=== PATIENT | female | born 1985 | race Two or more races ===

== ENCOUNTER 2024-10-16 17:58 | Emergency (ER) | payer OTHER ==
[~2024-10-16] VITALS: Ht 149.9 cm; Wt 65.0 kg
[2024-10-16 18:01] VITALS: TEMP 97.9
--- NOTE | 2024-10-16 18:29 | ED.PDOC ---
SOB-HPI HPI Comments 39-year-old female who came to ER via EMS for shortness of breath. Patient does have history of asthma, states for the past 2-3 days, she has been experiencing shortness of breath and wheezing, temporary relieved with inhalers and nebulizers. About an hour ago, she was at the grocery when she developed sudden onset shortness of breath and wheezing, prompting paramedics to come. She was saturating 80% on room air on scene. Chief Complaint: Shortness of Breath Time Seen by MD: 18:28 Primary Care Provider: ALIN Jimenez notes: Adaptive Physical Education Specialist Notes Information Source: Emergency Med Personnel Mode of Arrival: EMS Severity: Moderate Timing: Days Duration: Intermittent Context: With Light Exertion History of: Asthma Prehospital treatment: Breathing Tx Associated Signs and Symptoms: Wheeze, Cough Quality: Tightness Radiation: No Radiation If cough with SOB: Non-Productive Past Medical History PAST MEDICAL HISTORY: Asthma Surgical History: Denies all surgeries FLOOD CONTROL ENGINEER History: Denies all FLOOD CONTROL ENGINEER Hx Family History Family History: Reviewed,noncontributory to illness Social History Smoker: Non-Smoker Alcohol: Denies ETOH Use Drugs: Denies Drug Use Lives In: Home Constitutional: denies: chills, diaphoresis, fatigue, fever, malaise, sweats, weakness, others EENTM: denies: blurred vision, double vision, ear bleeding, ear discharge, ear drainage, ear pain, ear ringing, eye pain, eye redness, hearing loss, mouth pain, mouth swelling, nasal discharge, nose bleeding, nose congestion, nose pain, photophobia, tearing, throat pain, throat swelling, voice changes, others Respiratory: reports: SOB at rest, shortness of breath, wheezing; denies: cough, hemoptysis, orthopnea, SOB with excertion, stridor, others Cardiovascular: denies: chest pain, dizzy spells, diaphoresis, Dyspnea on exertion, edema, irregular heart beat, left arm pain, lightheadedness, palpitations, PND, syncope, others Gastrointestinal: denies: abdomen distended, abdominal pain, blood streaked bowels, constipated, diarrhea, dysphagia, difficulty swallowing, hematemesis, melena, nausea, poor appetite, poor fluid intake, rectal bleeding, rectal pain, vomiting, others Genitourinary: denies: abnormal vagina bleeding, burning, dyspareunia, dysuria, flank pain, frequency, hematuria, incontinence, pain, , vagina discharge, urgency, others Neurological: denies: dizziness, fainting, headache, left sided numbness, left sided weakness, numbness, paresthesia, pre-existing deficit, right sided numbness, right sided weakness, seizure, speech problems, tingling, tremors, weakness, others Musculoskeletal: denies: back pain, gout, joint pain, joint swelling, muscle pain, muscle stiffness, neck pain, others Integumetry: denies: bruises, change in color, change in hair/nails, dryness, laceration, lesions, lumps, rash, wounds, others Allergic/Immunocompromised: denies: Difficulty Healing, Frequent Infections, Hives, Itching, others Hematologic/Lymphatic: denies: anemia, blood clots, easy bleeding, easy bruising, swollen glands, others Endocrine: denies: excessive hunger, excessive sweating, excessive thirst, excessive urination, flushing, intolerance to cold, intolerance to heat, unexplained weight gain, unexplained weight loss, others Psychiatric: denies: anxiety, bipolar disorder, depression, hopeless, panic disorder, schizophrenia, sleepless, suicidal, others Physical Exam General Appearance: Mild Distress, Normal HEENT: Normal ENT Inspection, Pharynx Normal, TMs Normal Neck: Full Range of Motion, Non-Tender, Normal, Normal Inspection Respiratory: Chest Non-Tender, No Accessory Muscle Use, Respiratory Distress, Wheezing Cardiovascular: No Edema, No JVD, No Murmur, No Gallop, Normal Peripheral Pulses, Regular Rate/Rhythm Breast Exam: Deferred Gastrointestinal: No Organomegaly, Non Tender, No Pulsatile Mass, Normal Bowel Sounds, Soft Genitalia: Deferred Pelvic: Deferred Rectal: Deferred Extremities: No calf tenderness, Normal capillary refill, Normal inspection, Normal range of motion, Non-tender, No pedal edema Musculoskeletal : Apperance: Normal Neurologic: Alert, personnel coordinator II-XII nml as Tested, No Motor Deficits, Normal Affect, Normal Mood, No Sensory Deficits Cerebellar Function: Normal Reflexes: Normal Skin: Dry, Normal Color, Warm Lymphatic: No Adenopathy Was a procedure done? Was a procedure done?: No Differential Dx Differential Diagnosis: Asthma, Bronchitis, Pneumonia, Respiratory Distress, URI X-Ray, Labs, Meds, VS Vital Signs Date Time Temp Pulse Resp B/P (MAP) Pulse Ox O2 Delivery O2 Flow Rate FiO2 10/16/24 20:20 89 10 97 Room Air* 0 21 10/16/24 20:20 89 10 105/55 (72) 10/16/24 18:42 93 18 99 Room Air* 0 21 10/16/24 18:39 90 17 115/51 (72) 100 10/16/24 18:37 20 99 Room Air* 0 21 10/16/24 18:01 97.9 88 30 120/78 (92) 100 97.9 Current Medications Medications (Trade) Dose Ordered Sig/Donna Route Start Time Stop Time Status Last Admin Albuterol (Ventolin Medneb) 5 mg ONCE ONCE NEB 10/16/24 18:30 10/16/24 18:31 DC 10/16/24 18:36 Ipratropium [place] (Atrovent Medneb) 0.5 mg ONCE ONCE NEB 10/16/24 18:30 10/16/24 18:31 DC 10/16/24 18:36 Prednisone 40 mg ONCE ONCE PO 10/16/24 18:30 10/16/24 18:31 DC 10/16/24 18:37 Time of 1ST Reevaluation: 18:26 Reevaluation 1ST: Unchanged Patient Education/Counseling: Diagnosis, Treatment Family Education/Counseling: No Family Present Departure 1 Departure Time of Disposition: 20:00 Impression: Primary Impression: Asthma exacerbation Disposition: 01 HOME / SELF CARE / HOMELESS Condition: Stable e-Prescriptions Prednisone (Prednisone) 20 Mg Tab 20 MG PO BID for 5 Days, #10 TAB Prov: ZAC REYES MD 10/16/24 Albuterol Sulfate (Albuterol Sulfate Hfa) 108 Mcg/Act Aer 108 MCG IN Q6HP PRN, #1 AER 5 Refills Prov: ZAC REYES MD 10/16/24 Albuterol Sulfate (Albuterol Sulfate) 0.083 % Neb 1 VIAL NEB Q4HPRN PRN, #50 VIAL 5 Refills Prov: ZAC REYES MD 10/16/24 Discharged With: Self Critical Care Note Critical Care Time?: No Stability Stability form required: No Heart Score Heart Score: Heart Score Response (Comments) Value History N/A 0 EKG N/A 0 Age N/A 0 Risk Factors N/A 0 Troponin N/A 0 Total 0 I personally scribed for ZAC REYES MD ([email or web address]) on 10/16/24 at 18:29. Electronically submitted by Ryne Bolanos ([facility]). ZAC REYES MD October 16, 2024 18:29
[2024-10-16] MEDS: ALBUTEROL SULF 2.5 MG/0.5ML(0.5%) NEB SOLN NEB ONE (18:36)
[2024-10-16] MEDS: IPRATROPIUM BROM 0.5 MG/2.5ML INH SOL NEB ONE (18:36)
[2024-10-16] MEDS: predniSONE 20 MG TAB PO ONE (18:37)
[2024-10-16 18:42] VITALS: PULSE 93; RESP 18; O2SAT 99
--- NOTE | 2024-10-16 18:54 | DVH ---
CHEST RADIOGRAPH Indication: SOB Technique: Single frontal view of the chest was obtained Comparison: None FINDINGS: Lines and Tubes: None Lungs: No focal consolidation. Pleura: No effusion. No pneumothorax. Cardiomediastinal contours: Unremarkable Bones: No acute osseous abnormality. IMPRESSION: 1. No acute cardiopulmonary disease.
[2024-10-16] MEDS ORDERED: ALBU108A5 IN (19:51)
[2024-10-16] MEDS ORDERED: PRED20TA2 PO (19:51)
[2024-10-16] MEDS ORDERED: ALBU0.084 NEB (19:51)
[2024-10-16 20:20] VITALS: BP 105/55; PULSE 89; RESP 10; O2SAT 97
== END 2024-10-16 20:44 | disposition home or self-care (01) ==
LOC: EDBD 17:58 → ER 18:07
DX: J45.901 Unspecified asthma with (acute) exacerbation (principal)
CPT/HCPCS: 71045; 94640; 99283; J7512

== ENCOUNTER 2024-11-26 17:19 | Inpatient (IN) | payer OTHER ==
[~2024-11-26] VITALS: Ht 149.9 cm; Wt 70.1 kg
[~2024-11-26 17:19] MED LIST: ALBU0.084 NEB; ALBU108A5 IN; PRED20TA2 PO
--- NOTE | 2024-11-26 17:34 | ED.PDOC ---
SOB-HPI HPI Comments This is a 39 year old female presenting to the ED with chief complaint of SOB. Patient reports that she started to experiencing difficulty breathing with SOB about 20 minutes ago. Patient relays that she has history of asthma and had used her inhaler and nebulizer with no relief noted. Patient states she feels like she is having an allergic reaction, but is not sure from what. Patient denies any N/V, chest pain, fever, chills, dizziness, cough, itchiness, or rash. Chief Complaint: Asthma Time Seen by MD: 17:32 Primary Care Provider: ALIN Reviewed notes: Nurses Notes, Medications, Allergies Information Source: Patient Mode of Arrival: Ambulatory Severity: Moderate Timing: Minutes Duration: Since onset Context: At Rest PE Risk Factors: None History of: Asthma Prehospital treatment: Breathing Tx Modifying Factors: Nothing Associated Signs and Symptoms: None Past Medical History PAST MEDICAL HISTORY: Asthma Surgical History: Denies all surgeries PMO ANALYST History: Denies all PMO ANALYST Hx Family History Family History: Reviewed,noncontributory to illness, Family hx of DM Social History Smoker: Non-Smoker Alcohol: Denies ETOH Use Drugs: Denies Drug Use Lives In: Home Constitutional: denies: chills, diaphoresis, fatigue, fever, malaise, sweats, weakness, others EENTM: denies: blurred vision, double vision, ear bleeding, ear discharge, ear drainage, ear pain, ear ringing, eye pain, eye redness, hearing loss, mouth pain, mouth swelling, nasal discharge, nose bleeding, nose congestion, nose pain, photophobia, tearing, throat pain, throat swelling, voice changes, others Respiratory: reports: shortness of breath; denies: cough, hemoptysis, orthopnea, SOB at rest, SOB with excertion, stridor, wheezing, others Cardiovascular: denies: chest pain, dizzy spells, diaphoresis, Dyspnea on exertion, edema, irregular heart beat, left arm pain, lightheadedness, palpitations, PND, syncope, others Gastrointestinal: denies: abdomen distended, abdominal pain, blood streaked bowels, constipated, diarrhea, dysphagia, difficulty swallowing, hematemesis, melena, nausea, poor appetite, poor fluid intake, rectal bleeding, rectal pain, vomiting, others Genitourinary: denies: abnormal vagina bleeding, burning, dyspareunia, dysuria, flank pain, frequency, hematuria, incontinence, pain, , vagina discharge, urgency, others Neurological: denies: dizziness, fainting, headache, left sided numbness, left sided weakness, numbness, paresthesia, pre-existing deficit, right sided numbness, right sided weakness, seizure, speech problems, tingling, tremors, weakness, others Musculoskeletal: denies: back pain, gout, joint pain, joint swelling, muscle pain, muscle stiffness, neck pain, others Integumetry: denies: bruises, change in color, change in hair/nails, dryness, laceration, lesions, lumps, rash, wounds, others Allergic/Immunocompromised: denies: Difficulty Healing, Frequent Infections, Hives, Itching, others Hematologic/Lymphatic: denies: anemia, blood clots, easy bleeding, easy bruising, swollen glands, others Endocrine: denies: excessive hunger, excessive sweating, excessive thirst, excessive urination, flushing, intolerance to cold, intolerance to heat, unexplained weight gain, unexplained weight loss, others Psychiatric: denies: anxiety, bipolar disorder, depression, hopeless, panic disorder, schizophrenia, sleepless, suicidal, others All Other Systems: Reviewed and Negative Physical Exam General Appearance: Moderate Distress HEENT: Normal ENT Inspection, Pharynx Normal, TMs Normal Neck: Full Range of Motion, Non-Tender, Normal, Normal Inspection Respiratory: Chest Non-Tender, Decreased Breath Sounds, No Accessory Muscle Use, Respiratory Distress, Wheezing Cardiovascular: No Edema, No JVD, No Murmur, No Gallop, Normal Peripheral Pulses, Regular Rate/Rhythm Breast Exam: Deferred Gastrointestinal: No Organomegaly, Non Tender, No Pulsatile Mass, Normal Bowel Sounds, Soft Genitalia: Deferred Pelvic: Deferred Rectal: Deferred Extremities: No calf tenderness, Normal capillary refill, Normal inspection, Normal range of motion, Non-tender, No pedal edema Musculoskeletal : Apperance: Normal Neurologic: Alert, agency director II-XII nml as Tested, No Motor Deficits, Normal Affect, Normal Mood, No Sensory Deficits Cerebellar Function: Normal Reflexes: Normal Skin: Dry, Normal Color, Warm Lymphatic: No Adenopathy Was a procedure done? Was a procedure done?: No Differential Dx Differential Diagnosis: Asthma, Bronchitis, CHF, COPD, Pneumonia X-Ray, Labs, Meds, VS Vital Signs Date Time Temp Pulse Resp B/P (MAP) Pulse Ox O2 Delivery O2 Flow Rate FiO2 11/26/24 17:46 100 Room Air* 0 21 11/26/24 17:45 98.4 94 17 131/70 (90) 100 98.4 11/26/24 17:38 26 100 Room Air* 0 21 21 11/26/24 17:20 97.2 98 22 121/74 (90) 100 97.2 11/26/24 17:20 22 100 Room Air* 0 21 Lab Test 11/26/24 17:44 Range/Units White Blood Count 10.2 4.4-10.8 10^3/uL Red Blood Count 5.05 4.0-5.20 10^6/uL Hemoglobin 12.5 12.2-16.2 g/dL Hematocrit 38.6 36.0-46.0 % Mean Corpuscular Volume 76.4 L 80.0-100.0 fL Mean Corpuscular Hemoglobin 24.8 L 28.0-32.0 pg Mean Corpuscular Hemoglobin Concent 32.4 32.0-36.0 g/dL Red Cell Distribution Width 17.0 H 11.8-14.3 % Platelet Count 495 H 140-450 10^3/uL Mean Platelet Volume 7.7 6.9-10.8 fL Neutrophils (%) (Auto) 58.0 37.0-80.0 % Lymphocytes (%) (Auto) 32.9 10.0-50.0 % Monocytes (%) (Auto) 7.4 0.0-12.0 % Eosinophils (%) (Auto) 0.7 0.0-7.0 % Basophils (%) (Auto) 1.0 0.0-2.0 % Neutrophils # (Auto) 6.0 1.6-8.6 10 ^3/uL Lymphocytes # (Auto) 3.4 0.4-5.4 10 ^3/uL Monocytes # (Auto) 0.8 0-1.3 10 ^3/uL Eosinophils # (Auto) 0.1 0-0.8 10 ^3/uL Basophils # (Auto) 0.1 0-0.2 10 ^3/uL Nucleated Red Blood Cells 0.3 % Sodium Level 142 136-145 mmol/L Potassium Level 3.5 3.5-5.1 mmol/L Chloride Level 108 H 98-107 mmol/L Carbon Dioxide Level 23 20-31 mmol/L Anion Gap 11 5-15 Blood Urea Nitrogen 8 L 9-23 mg/dL Creatinine 0.63 0.550-1.02 mg/dL Glomerular Filtration Rate Calc 116 >90 mL/min BUN/Creatinine Ratio 12.7 10.0-20.0 Serum Glucose 84 74-106 mg/dL Calcium Level 9.0 8.7-10.4 mg/dL Current Medications Medications (Trade) Dose Ordered Sig/Donna Route Start Time Stop Time Status Last Admin Methylprednisolone Sodium Succinate (Solu Medrol) 125 mg ONCE ONCE IV 11/26/24 17:45 11/26/24 17:46 DC 11/26/24 17:43 Ipratropium [place] (Atrovent Medneb) 1 mg ONCE ONCE N 11/26/24 17:45 11/26/24 17:46 DC 11/26/24 17:45 Albuterol (Ventolin Medneb) 20 mg ONCE ONCE N 11/26/24 17:45 11/26/24 17:46 DC 11/26/24 17:45 Diphenhydramine HCl (Benadryl Injection) 25 mg ONCE ONCE IV 11/26/24 17:45 11/26/24 17:46 DC 11/26/24 17:43 Chest XR indicates: Perihilar airspace opacities and pulmonary vascular radha estion. 10 mm right upper lobe pulmonary nodule. Recommend chest CT to further evaluate. We are ordering a CAT scan of the chest The patient was given Solu-Medrol 125 mg IV push The patient was given a continuous breathing treatment of albuterol and Atrovent. The patient was also given Benadryl 25 mg IV push The CBC is within normal limits The chemistry panel is within normal limits At this time, the patient is being admitted to the hospitalist The diagnosis is status asthmaticus We are going to follow up on the 10 mm right upper lobe nodule Images Reviewed?: Images reviewed and evaluated by me Time of 1ST Reevaluation: 18:42 Reevaluation 1ST: Unchanged Patient Education/Counseling: Diagnosis, Treatment, Prognosis Family Education/Counseling: No Family Present SEPSIS Sepsis Screen Physician Orders Med Neb Initial Treatment (11/26/24 17:31) Chest Portable (11/26/24 17:31) Heplock Iv (11/26/24 17:31) Pulse Oximetry (11/26/24 17:31) Flute Teacher (11/26/24 17:31) Blood Pressure (11/26/24 17:31) Vital Signs Date Time Temp Pulse Resp B/P (MAP) Pulse Ox O2 Delivery O2 Flow Rate FiO2 11/26/24 17:46 100 Room Air* 0 21 11/26/24 17:45 98.4 94 17 131/70 (90) 100 98.4 11/26/24 17:38 26 100 Room Air* 0 21 21 11/26/24 17:20 97.2 98 22 121/74 (90) 100 97.2 11/26/24 17:20 22 100 Room Air* 0 21 Laboratory Tests Test 11/26/24 17:44 White Blood Count 10.2 10^3/uL (4.4-10.8) Medications Medications Dose Ordered Sig/Donna Route Start Time Stop Time Status Last Admin Dose Admin Albuterol 20 mg ONCE ONCE HHN 11/26/24 17:45 11/26/24 17:46 DC 11/26/24 17:45 Diphenhydramine HCl 25 mg ONCE ONCE IV 11/26/24 17:45 11/26/24 17:46 DC 11/26/24 17:43 Ipratropium [place] 1 mg ONCE ONCE N 11/26/24 17:45 11/26/24 17:46 DC 11/26/24 17:45 Methylprednisolone Sodium Succinate 125 mg ONCE ONCE IV 11/26/24 17:45 11/26/24 17:46 DC 11/26/24 17:43 Departure 1 Departure Time of Disposition: 18:41 Impression: Primary Impression: Asthma with status asthmaticus Qualified Codes: J45.42 - Moderate persistent asthma with status asthmaticus Disposition: 09 ADMITTED INPATIENT Admit to: Tele Condition: Fair Critical Care Note Critical Care Time?: Yes (45 min-critical care time only) Stability Stability form required: Yes Unstable for transfer: Telemetry monitoring (Telemetry monitoring required), ED Physician Assesment (Clinical assesment) Heart Score Heart Score: Heart Score Response (Comments) Value History N/A 0 EKG N/A 0 Age N/A 0 Risk Factors N/A 0 Troponin N/A 0 Total 0 I personally scribed for JENNIFER ESCOBAR MD ([email or web address]) on 11/26/24 at 17:34. Electronically submitted by Joselo Marroquin ([email or web address]). I personally scribed for JENNIFER ESCOBAR MD ([email or web address]) on 11/26/24 at 18:39. Electronically submitted by Joselo Marroquin ([email or web address]). JENNIFER ESCOBAR MD Nov 26, 2024 17:34
[2024-11-26] MEDS: methylPREDNISolone SOD SUCC 125 MG/2 ML VL IV ONE (17:43)
[2024-11-26] MEDS: diphenhdrAMINE HCL 50 MG/1 ML VL IV ONE ×2 (17:43→23:10)
[2024-11-26] MEDS: IPRATROPIUM BROM 0.5 MG/2.5ML INH SOL HHN ONE (17:45)
[2024-11-26] MEDS: ALBUTEROL SULF 2.5 MG/0.5ML(0.5%) NEB SOLN HHN ONE (17:45)
[2024-11-26 17:46] VITALS: O2SAT 100
[2024-11-26 17:51] LABS: Basophils # (auto) 0.1 10 ^3/uL (0-0.2); Eosinophils # (auto) 0.1 10 ^3/uL (0-0.8); Hemoglobin 12.5 g/dL (12.2-16.2); Nucleated Red Blood Cells % 0.3 %
[2024-11-26 17:52] LABS: Eosinophils % (auto) 0.7 % (0.0-7.0); Hematocrit 38.6 % (36.0-46.0); Lymphocytes # (auto) 3.4 10 ^3/uL (0.4-5.4); Lymphocytes % (auto) 32.9 % (10.0-50.0); Mean Corpuscular Hemoglobin 24.8 pg (28.0-32.0); Mean Corpuscular Hgb Conc. 32.4 g/dL (32.0-36.0); Mean Corpuscular Volume 76.4 fL (80.0-100.0); Monocytes # (auto) 0.8 10 ^3/uL (0-1.3); Monocytes % (auto) 7.4 % (0.0-12.0); Platelet Count (auto) 495 10^3/uL (140-450); Red Blood Cells 5.05 10^6/uL (4.0-5.20); White Blood Cell 10.2 10^3/uL (4.4-10.8)
[2024-11-26 17:59] LABS: Sodium 142 mmol/L (136-145)
[2024-11-26 18:00] LABS: Anion Gap 11 (5-15); Carbon Dioxide 23 mmol/L (20-31)
[2024-11-26 18:03] LABS: Chloride 108 mmol/L (98-107); Potassium 3.5 mmol/L (3.5-5.1)
[2024-11-26 18:05] LABS: Glucose 84 mg/dL (74-106)
[2024-11-26 18:06] LABS: BUN/Creatinine Ratio 12.7 (10.0-20.0)
[2024-11-26 18:07] LABS: Blood Urea Nitrogen 8 mg/dL (9-23)
--- NOTE | 2024-11-26 18:34 | DVH ---
CHEST RADIOGRAPH Indication: sob Technique: Single frontal view of the chest was obtained Comparison: None FINDINGS: The cardiac silhouette is unremarkable. The lungs demonstrate perihilar airspace opacities. 10 mm rig ht upper lobe pulmonary nodule. The pulmonary vasculature is prominent. There is no pleural effusion. . There is no pneumothorax. IMPRESSION: Perihilar airspace opacities and pulmonary vascular congestion. 10 mm right upper lobe pulmonary nodule. Recommend chest CT to further evaluate.
[2024-11-26 19:25] VITALS: RESP 18; O2SAT 99
--- NOTE | 2024-11-26 20:23 | DVH ---
Procedure: CT CHEST WITHOUT CONTRAST Reason for study/Clinical History: sob Comparison Study: None Exam Date: 11/26/2024 07:52 PM TECHNIQUE: Multidetector CT of the chest was performed from the lung apices to the upper abdomen with out the use of intravenous contract. Axial, coronal and sagittal multiplanar reformats were performed . Radiation Dose Information: CT Dose: CTDI volume is 7.35 mGy. Dose-length product is 262.08 mGy*cm The dose indicators for CT are the volume Computed Tomography (CT) Dose Index (CTDIvol) and the Dose Length Product (DLP), and are measured in units of mGy and mGy-cm, respectively. These indicators are not patient dose, but values generated from the CT scanner acquisition factors. The report includes radiation exposure data for exposures received during this examination. FINDINGS: Lower neck: Normal thyroid. Lungs: No focal consolidation, pleural effusion or pneumothorax. Heart/Vascular Structures: Normal heart size. No pericardial effusion. Lymph Nodes: No adenopathy Pleura: No pleural effusion or significant pneumothorax. Musculoskeletal: No acute osseous abnormality. Soft tissues: Normal. Upper abdomen: Limited portions of the upper abdomen are unremarkable. IMPRESSION: 1. No acute intrathoracic abnormality. 2. No infiltrates or effusions. Radiation optimization: All CT scans at this facility use at least one of these dose optimization rochelle hniques: automated exposure control mA and/or kV adjustment per patient size (includes targeted exam s where dose is matched to clinical indication) or iterative reconstruction.
[2024-11-26] MEDS ORDERED: IPRATROPIUM BROM 0.5 MG/2.5ML INH SOL NEB PRN (23:15)
[2024-11-26] MEDS ORDERED: ONDANSETRON HCL 4 MG/2 ML VIAL IV PRN (23:15)
[2024-11-26] MEDS ORDERED: ALBUTEROL SULF 2.5 MG/0.5ML(0.5%) NEB SOLN NEB PRN (23:15)
[2024-11-26] MEDS ORDERED: DOCUSATE SOD 100 MG CAP PO PRN (23:15)
[2024-11-26] MEDS ORDERED: NITROGLYCERIN 0.4 MG SL TAB SL PRN (23:15)
[2024-11-26] MEDS ORDERED: MORPHINE SULFATE INJ 2 MG/ml SYRG IV PRN (23:15)
--- NOTE | 2024-11-26 23:17 | DVHHP2 ---
History of Present Illness Reason for Visit: Asthma with acute exacerbation History of Present Illness The patient is a 39-year-old female with past medical history of asthma who presented to [facility] ED with complaint of shortness of breaths. Patient reports she has been experiencing difficulty breathing, increased work of breathing, getting worse that prompted this visit. Patient was seen and evaluated in the ED, laboratory data shows WBC 10.2, platelets 495, sodium 142, potassium 3.5, BUN 8, creatinine 0.63, glucose 84, calcium 9.0, BNP 15.28, D- dimer < 0.19, blood pressure 119/72, heart rate 98, temperature 98.3 F, O2 saturation 99% on oxygen. Chest x-ray revealing perihilar airspaces and pulmonary vascular congestion, 10 mm right upper lobe pulmonary nodules. Chest CT showed no acute intrathoracic abnormality, no infiltrates or effusions. Please see medication orders section in the computer. On my assessment, patient denied chest pain, no headache, no dizziness, currently on oxygen, no diaphoresis, no nausea, no vomiting, no fever, no chills. Patient was admitted for further evaluation and medical management. Past Medical History Asthma Past Surgical History Denies all surgeries Family History Reviewed, noncontributory to the management of this case. Past Social History The patient lives at home, denies smoking, alcohol or illicit drugs abuse. Review of Systems Constitutional: No: Fever, Chills, Sweats, Weakness, Malaise, Other Eyes: No: Pain, Vision change, Conjunctivae inflammation, Eyelid inflammation, Other, Redness ENT: No: Ear pain, Ear discharge, Nose pain, Nose discharge, Nose congestion, Mouth pain, Mouth swelling, Throat pain, Throat swelling, Other Respiratory: Shortness of breath, Other (SOB at rest); No: Cough, Dry, SOB with excertion, Wheezing, Hemoptysis, Pleuritic Pain, Sputum, Wheezing Cardiovascular: No: Chest Pain, Palpitations, Orthopnea, Paroxysmal Noc. Dyspnea, Edema, Lt Headedness, Other Gastrointestinal: No: Nausea, Vomiting, Abdominal Pain, Diarrhea, Constipation, Melena, Hematochezia, Other Genitourinary: No Dysuria, No Frequency, No Incontinence, No Hematuria, No Retention, No Other Musculoskeletal: No: other, neck pain, shoulder pain, arm pain, back pain, hand pain, leg pain, foot pain Skin: No: Rash, Lesions, Jaundice, Bruising, Other Neurological: No: Weakness, Numbness, Incoordination, Change in speech, Confusion, Seizures, Other Allergies: Uncoded Allergies: peanuts (Allergy, Unknown, 11/26/24) seasonal allergies (Allergy, Unknown, 11/26/24) Exam Vital Signs Vital Signs Date Time Temp Pulse Resp B/P (MAP) Pulse Ox O2 Delivery O2 Flow Rate FiO2 11/26/24 21:00 98 9 119/72 (88) 97 11/26/24 19:25 Room Air* 0 21 11/26/24 19:00 98.3 98.3 General Appearance: Alert, Oriented X3, Cooperative, No acute distress HEENT: Atraumatic, PERRLA, EOMI, Mucous membr. moist/pink Respiratory: Normal air movement, Other (Shortness of breaths) Cardiovascular: Regular rate, Normal S1, Normal S2, No murmurs Abdominal: Normal bowel sounds, Soft, No tenderness, No hepatospenomegaly, No masses Extremities: No clubbing, No cyanosis, No edema, Normal pulses, No tenderness/swelling Skin: No rashes, No breakdown, No significant lesion Neuro: Normal gait, Normal speech, Strength at 5/5 X4 ext, Normal tone, Sensation intact, Cranial nerves 3-12 NL, Reflexes 2+ Psych/Mental Status: Mental status NL, Mood NL Labs/Xrays Labs Test 11/26/24 20:20 11/26/24 19:27 11/26/24 17:44 Range/Units B-Type Natriuretic Peptide 15.28 0-100 pg/mL D-Dimer, Quantitative < 0.19 0.0-0.49 mg/L FEU White Blood Count 10.2 4.4-10.8 10^3/uL Red Blood Count 5.05 4.0-5.20 10^6/uL Hemoglobin 12.5 12.2-16.2 g/dL Hematocrit 38.6 36.0-46.0 % Mean Corpuscular Volume 76.4 L 80.0-100.0 fL Mean Corpuscular Hemoglobin 24.8 L 28.0-32.0 pg Mean Corpuscular Hemoglobin Concent 32.4 32.0-36.0 g/dL Red Cell Distribution Width 17.0 H 11.8-14.3 % Platelet Count 495 H 140-450 10^3/uL Mean Platelet Volume 7.7 6.9-10.8 fL Neutrophils (%) (Auto) 58.0 37.0-80.0 % Lymphocytes (%) (Auto) 32.9 10.0-50.0 % Monocytes (%) (Auto) 7.4 0.0-12.0 % Eosinophils (%) (Auto) 0.7 0.0-7.0 % Basophils (%) (Auto) 1.0 0.0-2.0 % Neutrophils # (Auto) 6.0 1.6-8.6 10 ^3/uL Lymphocytes # (Auto) 3.4 0.4-5.4 10 ^3/uL Monocytes # (Auto) 0.8 0-1.3 10 ^3/uL Eosinophils # (Auto) 0.1 0-0.8 10 ^3/uL Basophils # (Auto) 0.1 0-0.2 10 ^3/uL Nucleated Red Blood Cells 0.3 % Sodium Level 142 136-145 mmol/L Potassium Level 3.5 3.5-5.1 mmol/L Chloride Level 108 H 98-107 mmol/L Carbon Dioxide Level 23 20-31 mmol/L Anion Gap 11 5-15 Blood Urea Nitrogen 8 L 9-23 mg/dL Creatinine 0.63 0.550-1.02 mg/dL Glomerular Filtration Rate Calc 116 >90 mL/min BUN/Creatinine Ratio 12.7 10.0-20.0 Serum Glucose 84 74-106 mg/dL Calcium Level 9.0 8.7-10.4 mg/dL PATIENT: SHARAN SLATERCT: [id number] UNIT: [id number] : 1985 LOC: ER ROOM / BED: / AGE / SEX: 39 / F ADM STATUS: REG ER SERVICE [id number] ORDERING PHYSICIAN: JENNIFER ESCOBAR MD PROCEDURE(s): CXRP - CHEST PORTABLE REASON: sob ORDER NUMBER(s): [id number], ACCESSION NUMBER(s): [id number] CHEST RADIOGRAPH Indication: sob Technique: Single frontal view of the chest was obtained Comparison: None FINDINGS: The cardiac silhouette is unremarkable. The lungs demonstrate perihilar airspace opacities. 10 mm right upper lobe pulmonary nodule. The pulmonary vasculature is prominent. There is no pleural effusion. There is no pneumothorax. IMPRESSION: Perihilar airspace opacities and pulmonary vascular congestion. 10 mm right upper lobe pulmonary nodule. Recommend chest CT to further evaluate. ORDERING PHYSICIAN: JENNIFER ESCOBAR MD PROCEDURE(s): CX2CT - CHEST WITHOUT CONTRAST REASON: sob ORDER NUMBER(s): [id number], ACCESSION NUMBER(s): [id number] Procedure: CT CHEST WITHOUT CONTRAST Reason for study/Clinical History: sob Comparison Study: None Exam Date: 11/26/2024 07:52 PM TECHNIQUE: Multidetector CT of the chest was performed from the lung apices to the upper abdomen without the use of intravenous contract. Axial, coronal and sagittal multiplanar reformats were performed. Radiation Dose Information: CT Dose: CTDI volume is 7.35 mGy. Dose-length product is 262.08 mGy*cm The dose indicators for CT are the volume Computed Tomography (CT) Dose Index (CTDIvol) and the Dose Length Product (DLP), and are measured in units of mGy and mGy-cm, respectively. These indicators are not patient dose, but values generated from the CT scanner acquisition factors. The report includes radiation exposure data for exposures received during this examination. FINDINGS: Lower neck: Normal thyroid. Lungs: No focal consolidation, pleural effusion or pneumothorax. Heart/Vascular Structures: Normal heart size. No pericardial effusion. Lymph Nodes: No adenopathy Pleura: No pleural effusion or significant pneumothorax. Musculoskeletal: No acute osseous abnormality. Soft tissues: Normal. Upper abdomen: Limited portions of the upper abdomen are unremarkable. IMPRESSION: 1. No acute intrathoracic abnormality. 2. No infiltrates or effusions. Assessment/Plan Assessment/Plan Asthma with status asthmaticus Moderate persistent asthma with status asthmaticus Plan 1. Admit to telemetry unit 2. Breathing treatment 3. Pain control management 4. Management of fluids and electrolytes 5. Consultation for hospitalist 6. Diagnostic tests chest x-ray 7. DVT prophylaxis-on SCDs 8. Repeat labs CBC, CMP in a.m. 9. Continue with current medical management 10. Treatment plan discussed with patient and RN. Patient verbalized understanding. Plan discussed with: Patient, Other (RN) My Orders Orders - JULIÁN MORGAN DNP Procedure Category Date Status Time Albuterol Medneb PHA 11/26/24 Verified (Ventolin Medneb) 23:15 Ipratropium Medneb PHA 11/26/24 Verified (Atrovent Medneb) 23:15 Methylprednisolone PHA 11/27/24 Verified Sod Succ (Solu Medrol 06:00 Famotidine Injection PHA 11/27/24 Verified (Pepcid Injection) 10:00 Problem List: (1) Asthma with status asthmaticus (2) Moderate persistent asthma with status asthmaticus Date of Service: Nov 26, 2024 Billing Provider: JULIÁN MORGAN DNP Common Visit Codes: [id number] INP/OBS CARE (HIGH) JULIÁN MORGAN DNP Nov 26, 2024 23:16
[2024-11-26] MEDS ORDERED: IPRATROPIUM BROM 0.5 MG/2.5ML INH SOL ONE (23:26)
[2024-11-26] MEDS ORDERED: ALBUTEROL SULF 2.5 MG/0.5ML(0.5%) NEB SOLN ONE (23:26)
[2024-11-26 23:30] VITALS: BP 125/59; PULSE 110; PULSE 118; RESP 20; TEMP 98.3; O2SAT 100; O2SAT 98
[2024-11-26] MEDS: IPRATROPIUM BROM 0.5 MG/2.5ML INH SOL NEB ONE (23:34)
[2024-11-26] MEDS: ALBUTEROL SULF 2.5 MG/0.5ML(0.5%) NEB SOLN NEB ONE (23:35)
[2024-11-27] MEDS: HYDROcodone-ACET 5/325MG TAB PO PRN (03:03)
[2024-11-27 04:30] LABS: Basophils # (auto) 0 10 ^3/uL (0-0.2); Basophils % (auto) 0.1 % (0.0-2.0); Eosinophils # (auto) 0 10 ^3/uL (0-0.8); Lymphocytes # (auto) 0.6 10 ^3/uL (0.4-5.4); Lymphocytes % (auto) 6.1 % (10.0-50.0); Neutrophils # (auto) 8.6 10 ^3/uL (1.6-8.6); White Blood Cell 9.2 10^3/uL (4.4-10.8)
[2024-11-27 04:32] LABS: Hematocrit 33.7 % (36.0-46.0); Hemoglobin 11.2 g/dL (12.2-16.2); Mean Corpuscular Hemoglobin 25.4 pg (28.0-32.0); Mean Corpuscular Hgb Conc. 33.3 g/dL (32.0-36.0); Mean Corpuscular Volume 76.3 fL (80.0-100.0); Monocytes # (auto) 0.1 10 ^3/uL (0-1.3); Monocytes % (auto) 0.6 % (0.0-12.0); Neutrophils % (auto) 93.2 % (37.0-80.0); Platelet Count (auto) 431 10^3/uL (140-450); Red Blood Cells 4.42 10^6/uL (4.0-5.20)
[2024-11-27 04:55] LABS: Alanine Aminotransferase 19 U/L (7-40); Albumin 4.5 g/dL (3.2-4.8); Alkaline Phosphatase 86 U/L (46-116); Anion Gap 14 (5-15); Aspartate Aminotransferase 21 U/L (<34); BUN/Creatinine Ratio 10.7 (10.0-20.0); Calcium 8.8 mg/dL (8.7-10.4); Sodium 141 mmol/L (136-145); Total Protein 6.8 g/dL (5.7-8.2)
[2024-11-27 05:10] LABS: Bilirubin, Total 0.3 mg/dL (0.2-1.0); Blood Urea Nitrogen 9 mg/dL (9-23); Carbon Dioxide 18 mmol/L (20-31); Chloride 109 mmol/L (98-107); Glucose 225 mg/dL (74-106); Potassium 3.4 mmol/L (3.5-5.1)
[2024-11-27] MEDS: methylPREDNISolone SOD SUCC 40 MG/ML VL IV SCH (06:21)
[2024-11-27] MEDS: SODIUM CHLOR 0.9% PF (SALINE LOCK) 10ML VIAL/SYR IV SCH (06:21)
[2024-11-27] MEDS ORDERED: MONT-8 PO (06:57)
[2024-11-27] MEDS ORDERED: [UNRECOGNIZED DRUG - CODE] SC (06:57)
[2024-11-27] MEDS ORDERED: FLUT250M2 IN (06:57)
[2024-11-27 07:49] VITALS: PULSE 96; RESP 18; O2SAT 100
[2024-11-27] MEDS: diphenhdrAMINE HCL 50 MG/1 ML VL ONE (07:51)
[2024-11-27] MEDS ORDERED: FAMOTIDINE (10MG/ML) 2ML VL IV SCH (10:00)
[2024-11-27] MEDS: ACETAMINOPHEN 325 MG TAB PO PRN (11:29)
[2024-11-27 12:44] VITALS: BP 105/69; PULSE 64; RESP 20; TEMP 98.3; O2SAT 97
[2024-11-27 13:08] VITALS: BP 105/69; PULSE 64; RESP 20; TEMP 98.3; O2SAT 97
[2024-11-27 13:48] LABS: Urine Bacteria None Seen /hpf (None Seen)
[2024-11-27 13:58] LABS: Urine Blood Negative /uL (Negative); Urine Clarity Clear (Clear); Urine Color Colorless (Yellow); Urine Protein, UAD Negative (Negative); Urine Specific Gravity 1.021 (1.001-1.035); Urine Squamous Epithelial Cell FEW /hpf (<5); Urine Urobilinogen Normal (Negative); Urine WBC < 1 /HPF (0-5)
[2024-11-28] MEDS ORDERED: methylPREDNISolone SOD SUCC 40 MG/ML VL IV SCH (10:00)
== END 2024-11-27 13:29 | disposition home or self-care (01) | DRG 141 ==
LOC: ER 17:21 → OVERFLOW 23:12
PROVIDERS: ADMIT Student in an Organized Health Care Education/Training Program; ATTEND Student in an Organized Health Care Education/Training Program
DX: J45.42 Moderate persistent asthma with status asthmaticus (principal); J30.2 Other seasonal allergic rhinitis; Z91.010 Allergy to peanuts; Z83.3 Family history of diabetes mellitus
CPT/HCPCS: 36415; 71045; 71250; 80048; 80053; 81001; 83880; 85025; 85379; 94640; 96374; 96375; 99291; G0378

== ENCOUNTER 2025-01-29 19:31 | Emergency (ER) | payer OTHER ==
[~2025-01-29] VITALS: Ht 149.9 cm; Wt 63.0 kg
[~2025-01-29 19:31] MED LIST changes: +FLUT250M2 IN; +MONT-8 PO; +[UNRECOGNIZED DRUG - CODE] SC
--- NOTE | 2025-01-29 19:42 | ED.PDOC ---
SOB-HPI HPI Comments 39-year-old female who came to ER via EMS for shortness of breath. Patient does have history of asthma and allergic reactions. Few minutes ago, patient possibly exposed to an unknown allergen, she started developing throat pain swelling, generalized pruritus, chest tightness, shortness a breath and wheezing. Patient self-medicated with EpiPen twice, started using albuterol inhalers, as paramedics were called. On arrival, patient is still short of breath, throat swelling, patient given another dose of epinephrine, inhalers given, CPAP while EN route to the ER Chief Complaint: Shortness a breath Time Seen by MD: 19:41 Primary Care Provider: n/a Reviewed notes: Paintings Restorer Notes Information Source: Patient, Emergency Med Personnel Mode of Arrival: EMS Severity: Severe Timing: Minutes Duration: Since onset Context: With Light Exertion History of: Asthma, Intubation Associated Signs and Symptoms: Wheeze, Cough, Sore Throat, Chest Pain Quality: Tightness Radiation: No Radiation Past Medical History PAST MEDICAL HISTORY: Asthma Past Medical History (Other): Allergies Surgical History: Denies all surgeries [employer] WORK[employer] History: Denies all [employer] WORKER Hx Family History Family History: Reviewed,noncontributory to illness, Family hx of DM Social History Smoker: Non-Smoker Alcohol: Denies ETOH Use Drugs: Denies Drug Use Lives In: Home Constitutional: denies: chills, diaphoresis, fatigue, fever, malaise, sweats, weakness, others EENTM: reports: throat pain, throat swelling; denies: blurred vision, double vision, ear bleeding, ear discharge, ear drainage, ear pain, ear ringing, eye pain, eye redness, hearing loss, mouth pain, mouth swelling, nasal discharge, nose bleeding, nose congestion, nose pain, photophobia, tearing, voice changes, others Respiratory: reports: SOB at rest, shortness of breath, wheezing; denies: cough, hemoptysis, orthopnea, SOB with excertion, stridor, others Cardiovascular: reports: chest pain; denies: dizzy spells, diaphoresis, Dyspnea on exertion, edema, irregular heart beat, left arm pain, lightheadedness, palpitations, PND, syncope, others Gastrointestinal: denies: abdomen distended, abdominal pain, blood streaked bowels, constipated, diarrhea, dysphagia, difficulty swallowing, hematemesis, melena, nausea, poor appetite, poor fluid intake, rectal bleeding, rectal pain, vomiting, others Genitourinary: denies: abnormal vagina bleeding, burning, dyspareunia, dysuria, flank pain, frequency, hematuria, incontinence, pain, , vagina discharge, urgency, others Neurological: denies: dizziness, fainting, headache, left sided numbness, left sided weakness, numbness, paresthesia, pre-existing deficit, right sided numbness, right sided weakness, seizure, speech problems, tingling, tremors, weakness, others Musculoskeletal: denies: back pain, gout, joint pain, joint swelling, muscle pain, muscle stiffness, neck pain, others Integumetry: denies: bruises, change in color, change in hair/nails, dryness, laceration, lesions, lumps, rash, wounds, others Allergic/Immunocompromised: reports: Itching; denies: Difficulty Healing, Frequent Infections, Hives, others Hematologic/Lymphatic: denies: anemia, blood clots, easy bleeding, easy bruising, swollen glands, others Endocrine: denies: excessive hunger, excessive sweating, excessive thirst, excessive urination, flushing, intolerance to cold, intolerance to heat, unexplained weight gain, unexplained weight loss, others Psychiatric: denies: anxiety, bipolar disorder, depression, hopeless, panic disorder, schizophrenia, sleepless, suicidal, others Physical Exam General Appearance: Severe Distress HEENT: Normal ENT Inspection, Pharynx Normal, TMs Normal Neck: Full Range of Motion, Non-Tender, Normal, Normal Inspection Respiratory: Chest Non-Tender, Respiratory Distress, Wheezing Cardiovascular: No Edema, No JVD, No Murmur, No Gallop, Normal Peripheral Pulses, Regular Rate/Rhythm Breast Exam: Deferred Gastrointestinal: No Organomegaly, Non Tender, No Pulsatile Mass, Normal Bowel Sounds, Soft Genitalia: Deferred Pelvic: Deferred Rectal: Deferred Extremities: No calf tenderness, Normal capillary refill, Normal inspection, Normal range of motion, Non-tender, No pedal edema Musculoskeletal : Apperance: Normal Neurologic: Alert, receiving room clerk II-XII nml as Tested, No Motor Deficits, Normal Affect, Normal Mood, No Sensory Deficits Cerebellar Function: Normal Reflexes: Normal Skin: Dry, Normal Color, Warm Lymphatic: No Adenopathy Was a procedure done? Was a procedure done?: No Differential Dx Differential Diagnosis: Anxiety, Asthma, Respiratory Distress X-Ray, Labs, Meds, VS Vital Signs Date Time Temp Pulse Resp B/P (MAP) Pulse Ox O2 Delivery O2 Flow Rate FiO2 01/29/25 23:02 108 14 97 Room Air* 0 21 01/29/25 22:46 97.5 108 14 109/64 (79) 99 97.5 01/29/25 20:00 88 01/29/25 20:00 20 100 Nasal Cannula* 3 32 01/29/25 19:33 104 01/29/25 19:31 98.1 112 28 156/80 98 98.1 Lab Test 01/29/25 21:45 01/29/25 19:53 01/29/25 19:50 Range/Units Lactic Acid Level 2.4 *H 2.7 *H 0.4-2.0 mmol/L White Blood Count 10.9 H 4.4-10.8 10^3/uL Red Blood Count 4.88 4.0-5.20 10^6/uL Hemoglobin 12.6 12.2-16.2 g/dL Hematocrit 38.0 36.0-46.0 % Mean Corpuscular Volume 77.9 L 80.0-100.0 fL Mean Corpuscular Hemoglobin 25.8 L 28.0-32.0 pg Mean Corpuscular Hemoglobin Concent 33.1 32.0-36.0 g/dL Red Cell Distribution Width 20.0 H 11.8-14.3 % Platelet Count 456 H 140-450 10^3/uL Mean Platelet Volume 7.8 6.9-10.8 fL Neutrophils (%) (Auto) 62.7 37.0-80.0 % Lymphocytes (%) (Auto) 28.5 10.0-50.0 % Monocytes (%) (Auto) 6.7 0.0-12.0 % Eosinophils (%) (Auto) 1.2 0.0-7.0 % Basophils (%) (Auto) 0.9 0.0-2.0 % Neutrophils # (Auto) 6.8 1.6-8.6 10 ^3/uL Lymphocytes # (Auto) 3.1 0.4-5.4 10 ^3/uL Monocytes # (Auto) 0.7 0-1.3 10 ^3/uL Eosinophils # (Auto) 0.1 0-0.8 10 ^3/uL Basophils # (Auto) 0.1 0-0.2 10 ^3/uL Nucleated Red Blood Cells 0.1 % Sodium Level 140 136-145 mmol/L Potassium Level 3.1 L 3.5-5.1 mmol/L Chloride Level 107 98-107 mmol/L Carbon Dioxide Level 21 20-31 mmol/L Anion Gap 12 5-15 Blood Urea Nitrogen 10 9-23 mg/dL Creatinine 0.63 0.550-1.02 mg/dL Glomerular Filtration Rate Calc 116 >90 mL/min BUN/Creatinine Ratio 15.9 10.0-20.0 Serum Glucose 98 74-106 mg/dL Calcium Level 9.1 8.7-10.4 mg/dL Magnesium Level 1.9 1.6-2.6 mg/dL Total Bilirubin 0.3 0.2-1.0 mg/dL Aspartate Amino Transferase (AST) 23 13-40 U/L Alanine Aminotransferase (ALT) 22 7-40 U/L Alkaline Phosphatase 96 46-116 U/L B-Type Natriuretic Peptide 1.89 0-100 pg/mL Total Protein 7.0 5.7-8.2 g/dL Albumin 4.5 3.2-4.8 g/dL Blood Gas Specimen Type Venous Blood Gas Sample Site Vbg - n/a Blood Gas Patient Temperature 37.0 Arterial Blood Date Drawn [id number] Brian Test N/a Venous Blood pH 7.499 H 7.320-7.430 Venous Blood pCO2 at Patient Temp 26.5 L 38.0-54.0 mmHg Venous Blood pO2 at Patient Temp < 36.5 23.0-48.0 mmHg Venous Blood HCO3 20.2 L 22.0-29.0 mmol/L Venous Blood Base Excess -1.4 -2.0-3.0 mmol/L Blood Gas Liter Flow 3.00 Blood Gas Modality Nasal cannula FiO2 % 32.0 Current Medications Medications (Trade) Dose Ordered Sig/Donna Route Start Time Stop Time Status Last Admin Sodium Chloride 1,000 ml @ 1,000 mls/hr Q1H ONCE IVB 01/29/25 19:45 01/29/25 20:44 DC 01/29/25 20:05 Methylprednisolone Sodium Succinate (Solu Medrol) 125 mg ONCE ONCE IV 01/29/25 19:45 01/29/25 19:46 DC 01/29/25 20:02 Diphenhydramine HCl (Benadryl Injection) 25 mg ONCE ONCE IV 01/29/25 19:45 01/29/25 19:46 DC 01/29/25 20:04 Famotidine (Pepcid Injection) 20 mg ONCE ONCE IV 01/29/25 19:45 01/29/25 19:46 DC 01/29/25 20:02 Albuterol (Ventolin Medneb) 5 mg ONCE ONCE NEB 01/29/25 19:45 01/29/25 19:46 DC 01/29/25 19:59 Diphenhydramine HCl (Benadryl Injection) 25 mg ONCE ONCE IV 01/29/25 21:00 01/29/25 21:01 DC 01/29/25 21:15 Magnesium Sulfate/ Dextrose 100 ml @ 600 mls/hr Q10M IV 01/29/25 21:00 01/29/25 21:19 DC 01/29/25 21:57 Time of 1ST Reevaluation: 19:38 Reevaluation 1ST: Unchanged Patient Education/Counseling: Diagnosis, Treatment Family Education/Counseling: No Family Present SEPSIS Sepsis Screen Physician Orders Blood Culture (01/29/25 19:35) Chest Portable (01/29/25 19:35) Venous Blood Gas (01/29/25 19:35) Vital Signs Date Time Temp Pulse Resp B/P (MAP) Pulse Ox O2 Delivery O2 Flow Rate FiO2 01/29/25 23:02 108 14 97 Room Air* 0 21 01/29/25 22:46 97.5 108 14 109/64 (79) 99 97.5 01/29/25 20:00 88 01/29/25 20:00 20 100 Nasal Cannula* 3 32 01/29/25 19:33 104 01/29/25 19:31 98.1 112 28 156/80 98 98.1 Laboratory Tests Test 01/29/25 19:53 01/29/25 21:45 Lactic Acid Level 2.7 mmol/L (0.4-2.0) *H 2.4 mmol/L (0.4-2.0) *H White Blood Count 10.9 10^3/uL (4.4-10.8) H Medications Medications Dose Ordered Sig/Donna Route Start Time Stop Time Status Last Admin Dose Admin Albuterol 5 mg ONCE ONCE NEB 01/29/25 19:45 01/29/25 19:46 DC 01/29/25 19:59 Diphenhydramine HCl 25 mg ONCE ONCE IV 01/29/25 19:45 01/29/25 19:46 DC 01/29/25 20:04 Diphenhydramine HCl 25 mg ONCE ONCE IV 01/29/25 21:00 01/29/25 21:01 DC 01/29/25 21:15 Famotidine 20 mg ONCE ONCE IV 01/29/25 19:45 01/29/25 19:46 DC 01/29/25 20:02 Magnesium Sulfate/ Dextrose 100 ml @ 600 mls/hr Q10M IV 01/29/25 21:00 01/29/25 21:19 DC 01/29/25 21:57 Methylprednisolone Sodium Succinate 125 mg ONCE ONCE IV 01/29/25 19:45 01/29/25 19:46 DC 01/29/25 20:02 Sodium Chloride 1,000 ml @ 1,000 mls/hr Q1H ONCE IVB 01/29/25 19:45 01/29/25 20:44 DC 01/29/25 20:05 Departure 1 Departure Time of Disposition: 21:00 Impression: Primary Impression: Asthma exacerbation Disposition: HOME / SELF CARE / HOMELESS Condition: Stable Discharged With: Self Critical Care Note Critical Care Time?: Yes (35 min-critical care time only) Critical care comment: Wheezing, shortness a breath Stability Stability form required: No Heart Score Heart Score: Heart Score Response (Comments) Value History N/A 0 EKG N/A 0 Age N/A 0 Risk Factors N/A 0 Troponin N/A 0 Total 0 I personally scribed for ZAC REYES MD ([email or web address]) on 01/29/25 at 19:42. Electronically submitted by Ryne Bolanos ([email or web address]). ZAC REYES MD Jan 29, 2025 19:42
[2025-01-29] MEDS ORDERED: MAGNESIUM SULFATE 1GM/100ML 100 ML IV SCH (19:45)
[2025-01-29] MEDS: ALBUTEROL SULF 2.5 MG/0.5ML(0.5%) NEB SOLN NEB ONE (19:59)
[2025-01-29] MEDS: FAMOTIDINE (10MG/ML) 2ML VL IV ONE (20:02)
[2025-01-29] MEDS: methylPREDNISolone SOD SUCC 125 MG/2 ML VL IV ONE (20:02)
[2025-01-29] MEDS: diphenhdrAMINE HCL 50 MG/1 ML VL IV ONE ×2 (20:04→21:15)
[2025-01-29] MEDS: SODIUM CHLORIDE 0.9% 1,000 ML IVB ONE (20:05)
[2025-01-29 20:10] LABS: Hemoglobin 12.6 g/dL (12.2-16.2); Nucleated Red Blood Cells % 0.1 %
[2025-01-29 20:12] LABS: Hematocrit 38.0 % (36.0-46.0); Mean Corpuscular Hemoglobin 25.8 pg (28.0-32.0); Mean Corpuscular Volume 77.9 fL (80.0-100.0)
--- NOTE | 2025-01-29 20:13 | DVH ---
EXAM: XY CHEST PORTABLE HISTORY: SOB TECHNIQUE: 1 view of the chest COMPARISON: CT CHEST WITHOUT CONTRAST on DOS: 11/26/24 FINDINGS/IMPRESSION: LUNGS: No pleural effusion, consolidation, or pneumothorax MEDIASTINUM: Unremarkable BONES: No acute osseous abnormality OTHER: None
[2025-01-29 20:33] LABS: Lactic Acid w/Reflex 2.7 mmol/L (0.4-2.0)
[2025-01-29 20:35] LABS: Alanine Aminotransferase 22 U/L (7-40); Albumin 4.5 g/dL (3.2-4.8); Alkaline Phosphatase 96 U/L (46-116); Anion Gap 12 (5-15); BUN/Creatinine Ratio 15.9 (10.0-20.0); Bilirubin, Total 0.3 mg/dL (0.2-1.0); Blood Urea Nitrogen 10 mg/dL (9-23); Calcium 9.1 mg/dL (8.7-10.4); Carbon Dioxide 21 mmol/L (20-31); Glucose 98 mg/dL (74-106); Magnesium 1.9 mg/dL (1.6-2.6); Sodium 140 mmol/L (136-145); Total Protein 7.0 g/dL (5.7-8.2)
[2025-01-29 20:39] LABS: Chloride 107 mmol/L (98-107); Potassium 3.1 mmol/L (3.5-5.1)
[2025-01-29] MEDS: MAGNESIUM SULFATE 1GM/100ML 100 ML IV SCH (21:16)
[2025-01-29 22:46] VITALS: BP 109/64; TEMP 97.5
[2025-01-29 23:02] VITALS: PULSE 108; RESP 14; O2SAT 97
--- NOTE | 2025-01-29 23:21 | ECG ---
[facility] Test Date: 2025-01-29 Test Time: 19:33:28 Pat Name: ALEX SLATER Department: Room: Gender: F Admissions Consultant: NAJMA : 1985 Requested By: ZAC REYES Order Number: [id number] Reading MD: Julio Avelar Measurements Intervals [place] Rate: 104 P: 50 [place]: 136 QRS: 0 QRSD: 103 T: 48 QT: 348 QTc: 458 Interpretive Statements Sinus tachycardia Ventricular premature complex Indeterminate axis Low voltage, precordial leads Abnormal R-wave progression, early transition Borderline abnrm T, anterolateral leads Electronically Signed On 01-30-2025 16:45:17 PDT by Julio Avelar Please click the below link to view image of tracing.
== END 2025-01-29 23:13 | disposition home or self-care (01) ==
LOC: ER 19:31 → EDBD 19:31 → ER 23:13
DX: J45.901 Unspecified asthma with (acute) exacerbation (principal)
CPT/HCPCS: 36415; 36600; 71045; 80053; 82805; 83605; 83735; 83880; 85025; 87040; 93005; 94640; 96361; 96365; 96366; 96375; 96376; 99285; J1200; J2919; J3475; J3490; J7030